=== PATIENT | female | born 1960 | race Caucasian/White ===

== ENCOUNTER 2017-03-23 07:30 | Inpatient (IN) ==
[~2017-03-23 07:30] MED LIST: ACETAMINOPHEN 500 MG TABLET PO ONE; FAMOTIDINE PB 20 MG/50 ML BAG IV ONE; LIDOCAINE 1% (10mg/ml) 2mL INJ PF SDV ID ONE; MELOXICAM 15 MG TABLET PO ONE; METOCLOPRAMIDE 10mg/2ml INJECTION IVP ONE; ONDANSETRON 4 MG/2 ML INJECTION IVP ONE; TRANEXAMIC ACID 1,000 MG in NS 100 ML IV ONE
[2017-03-23] MEDS ORDERED: EPINEPHrine PF 0.25 MG, BUPIVACAINE 0.25% PF 30 ML, MORPHINE SULFATE 15 MG, KETOROLAC I... OPSITE ONE (08:00)
[2017-03-23 09:39] VITALS: BMI 30.4
[2017-03-23] MEDS: NOZIN NASAL SWAB NAS SCH ×3 (10:28→21:42)
[2017-03-23] MEDS: LR 1,000 ML IV SCH ×3 (10:28→14:45)
[2017-03-23] MEDS ORDERED: LR 1,000 ML IV ONE (10:30)
[2017-03-23] MEDS ORDERED: METOCLOPRAMIDE 10mg/2ml INJECTION ONE (10:30)
[2017-03-23] MEDS ORDERED: FAMOTIDINE 20 MG/50 ML PREMIX IV ONE (10:30)
[2017-03-23] MEDS ORDERED: ACETAMINOPHEN 500 MG TABLET ONE (10:30)
[2017-03-23] MEDS ORDERED: ONDANSETRON 4 MG/2 ML INJECTION ONE ×2 (10:30→14:26)
[2017-03-23] MEDS ORDERED: MELOXICAM 15 MG TABLET ONE (10:30)
[2017-03-23] MEDS ORDERED: CEFAZOLIN 1 G INJECTION IVP ONE (10:33)
[2017-03-23] MEDS ORDERED: VANCOMYCIN 1,000 MG INJECTION ONE (11:40)
--- NOTE | 2017-03-23 11:40 | Anesthesia Preoperative Report ---
Anesthesia Preoperative Record - Date and Time Date: 03/23/17 Preoperative Diagnosis: Lt SANJANA M16.12 Proposed Procedure: left SANJANA NPO Since Date: 03/22/17 NPO Since Time: 23:00 Allergies/Adverse Reactions: Allergies Allergy/AdvReac Type Severity Reaction Status Date / Time No Known Allergies Allergy Verified 03/23/17 10:01 - Vital Signs Vital Signs: Temperature 98.6 F 03/23/17 09:38 Pulse Rate 65 03/23/17 10:16 Respiratory Rate 13 03/23/17 09:38 Blood Pressure 127/71 03/23/17 09:38 Pulse Oximetry 96 03/23/17 09:38 Height and Weight: Height 5 ft 4 in Weight 80.4 kg Body Mass Index 30.4 - Medications Inpatient Medications: Current Medications Lactated Ringer's (Lactated Ringers) 1,000 mls @ 50 mls/hr IV .Q20H MICHELLE Last Admin: 03/23/17 10:28 Dose: 50 mls/hr Isopropyl Alcohol (Nozin Nasal Swab) 1 each FABBY Q1M MICHELLE Stop: 03/23/17 15:48 Last Admin: 03/23/17 10:29 Dose: 1 each Sodium Chloride (Iv Flush) 10 - 80 ml IV PRN PRN PRN Reason: [place] Home Medications: Home Medications Medication Instructions Recorded Confirmed Type Celexa (citalopram) 40 mg tablet 40 mg PO DAILY 02/01/17 03/23/17 History Prevacid (Lansoprazole) 15 mg 15 mg PO DAILY cap 02/01/17 03/23/17 History capsule,delayed release Xanax (alprazolam) 0.25 mg tablet 0.25 mg PO Q6H PRN tab 02/01/17 03/23/17 History dapagliflozin 5 mg tablet 5 mg PO DAILY 02/01/17 03/23/17 History linagliptin 2.5 mg-metformin 1,000 1 tab PO DAILY tab 02/02/17 03/23/17 History mg tablet Aleve PM (Naproxen 220 2 tab PO HS PRN tab 03/16/17 03/23/17 History mg-diphenhydramine 25 mg tablet) Naproxen sodium 220 mg tablet 440 mg PO QAM PRN tab 03/16/17 03/23/17 History Acetaminophen [Acetaminophen Extra 500 mg PO PRN 03/23/17 03/23/17 History Strength] Docusate Sodium [Colace] 1 cap PO PRN PRN 03/23/17 03/23/17 History Is Patient on Beta Michele?: No - Medical History Respiratory: Reports: Pneumonia (early ) DENIES: Asthma, Sleep Apnea (SUSPECTED) Cardiovascular: Reports: Other (hyperlipidemia) DENIES: Hypertension Gastrointestional: Reports: Gastroesophageal Reflux Disease (well controlled) Neuro/Musculoskeletal: Reports: HX.MS.OSAR, Back Problems, Depression Renal/Endocrine: Reports: Diabetes Mellitus Type 2 (NIDDM) Other History: Reports: Blood Transfusions (no known reaction) - Surgical History HEENT Surgeries: Reports: Oral Surgery (ext wisdom teeth), Tonsillectomy Cardiac Surgeries/Treatments: Reports: Other (stress test negative) GI Surgery/Treatments: Reports: Appendectomy, Cholecystectomy (open) Reproductive Surgery/Treatment: Reports: Section Anesthesia Reactions: None Hx Family Anesthesia Reaction: No History of Motion Sickness: No - Social History Smoking Status: Never smoker Substance Use Type: does not use Alcohol Intake: never Alcohol Intake Frequency: does not drink - Pertinent Findings Laboratory: CBC and BMP 03/23/17 10:09 BMP 03/23/17 10:09 Sodium 143 Potassium 3.9 Chloride 105 Carbon Dioxide 24 BUN 17.0 Creatinine 0.6 L Glucose 126 H Calcium 9.8 EKG: Sinus Rhythm EKG Ectopy: Bundle Branch Block (right BBB on EKG) - Physical Exam Respiratory Exam: Present: lungs clear, bilateral breath sounds equal Cardiovascular Exam: Present: regular rate and rhythm - Airway Assessment Mallampati Score: III TMD: 3 Fingerbreadths Neck Extension: good Overall Assessment: no airway concerns - ASA ASA Score: 2 - Plan Anesthesia: General [facility]/Trunk Block: Spinal - Discussion Discussion: Discussed risks/options/alternatives of anesthesia and questions answered. Patient consents. Nursing pain assessment noted. Present for Discussion: children (son and daughter) Attestation Statement: Prior to the delivery of any anesthetic medication, I examined the patient, developed the plan, obtained the patient's consent and discussed the risk and benefits of the procedure with the patient/guardian. - Additional Information Seen by Anesthesia: Yes
[2017-03-23] MEDS ORDERED: PROPOFOL 40 ML ONE (11:47)
[2017-03-23] MEDS ORDERED: MIDAZOLAM 2mg/2ml INJECTION ONE (11:47)
[2017-03-23] MEDS ORDERED: VANCOMYCIN 1,000 MG INJECTION IAR ONE (11:49)
[2017-03-23] MEDS ORDERED: PROPOFOL 20 ML ONE ×2 (13:45→14:18)
--- NOTE | 2017-03-23 14:01 | Operative Note ---
- Procedure Preoperative Diagnosis: Left hip primary degenerative joint disease Postoperative Diagnosis: Same as preoperative diagnosis. Surgeon: Ju Amaya MD Investment Consultant: Dung Barron Complications: None. Anesthesia: Spinal. Estimated Blood Loss: See Anesthesia Record. Fluids: Please see Anesthesia Record. Description of Procedure: and her left hip were identified and marked in the preoperative holding area. She was brought back to the operating suite and spinal anesthetic was administered. She was then placed in a lateral decubitus position with her left hip up. The left lower extremity was prepped and draped in my normal sterile fashion. Timeout was performed. The Zinio robotic arm was used to assist with the surgery. A pelvic array was placed into the iliac crest through three small incisions. A direct superior approach was utilized. An approximately 12 cm incision was made in the skin and dissection carried down to the muscle fascia which was then split in line with skin incision. A The short external rotators were identified and tagged and detached. A capsulotomy was performed and the hip dislocated. A femoral neck osteotomy was performed at the pre-templated level measuring down from the femoral head. The head was removed and acetabulum exposed. Labrum was removed. The acetabulum was then registered with the robot. The robotic arm was then used to ream with a 50 reamer. The robot then was again used to place a 50 Trident cup in 40 of tilt and 22 of anteversion. A liner was then placed. The proximal femur was exposed and prepared with a cookie cutter followed by reaming and broaching to a size 3. We trialed with a 0 head. After thorough irrigation a final Accolade 2 size 3 stem with 127 neck was placed. Leg length and offset were checked with the robot and were good. A final standard ceramic 36 mm head was placed and the hip reduced. Betadine solution was used to irrigate throughout the case. It was followed by normal saline irrigation. Joint cocktail was injected throughout soft tissue. The capsulotomy was repaired with Ethibond. Short external rotators were also repaired with Ethibond. 1 g of vancomycin powder was placed into the wound. The muscle fascia was then repaired with #1 Vicryl. I then left my catering administrative assistant to close the subcutaneous tissue with 2-0 Vicryl followed by running 4-0 Monocryl skin followed by Dermabond and a sterile dressing. The patient with any placed back into supine position and taken to recovery room in the care of anesthesia.
[2017-03-23] MEDS ORDERED: MORPHINE SULFATE 10 MG/ML VIAL ONE (14:08)
[2017-03-23] MEDS ORDERED: DiphenhydrAMINE 50 MG/ML INJECTION IVP ONE (14:43)
[2017-03-23] MEDS ORDERED: DEXAMETHASONE 20 MG/5 ML INJECTION IVP ONE (14:44)
--- NOTE | 2017-03-23 14:53 | XRay Report ---
Indication: postoperative image PROCEDURE: XR pelvis w/ 1 view LT hip: Encounter: Initial Comparison: February 01, 2017 Findings: Postoperative changes of left total hip replacement are seen. There is expected postoperative subcutaneous gas. No evidence of hardware failure or acute fracture. No retained radiopaque surgical instruments or sponges seen. Impression: New left total hip prosthesis without evidence of immediate complication. .
[2017-03-23] MEDS ORDERED: ALPRAZolam 0.25 MG TABLET PO PRN (14:59)
[2017-03-23] MEDS ORDERED: INSULIN ASPART 100unit/ml INJECTION SQ PRN (14:59)
[2017-03-23] MEDS ORDERED: NOZIN NASAL SWAB NAS ONE (14:59)
[2017-03-23] MEDS ORDERED: LORazepam 1 MG TABLET PO PRN (14:59)
[2017-03-23] MEDS ORDERED: [UNRECOGNIZED DRUG - OTHER] PO PRN (14:59)
[2017-03-23] MEDS ORDERED: DIPHENHYDRAMINE PO PRN (14:59)
[2017-03-23] MEDS ORDERED: ONDANSETRON 4 MG/2 ML INJECTION IVP PRN (14:59)
[2017-03-23] MEDS ORDERED: DiphenhydrAMINE 50 MG/ML INJECTION IVP PRN (14:59)
[2017-03-23] MEDS ORDERED: NAPROXEN SOD PO PRN (14:59)
[2017-03-23] MEDS ORDERED: DiphenhydrAMINE 25 MG CAPSULE PO PRN ×2 (14:59→15:57)
[2017-03-23] MEDS ORDERED: NAPROXEN 220 MG TABLET PO PRN ×2 (14:59→15:55)
[2017-03-23] MEDS: NS 1,000 ML IV SCH (15:14)
[2017-03-23] MEDS: DEXAMETHASONE 20 MG/5 ML INJECTION IVP SCH ×2 (15:15→22:45)
[2017-03-23] MEDS ORDERED: FALL RISK - PHARMACY CONSULT XX ONE (15:43)
[2017-03-23] MEDS ORDERED: SALINE FLUSH 10ml SYRINGE IV PRN (15:43)
--- NOTE | 2017-03-23 16:06 | Anesthesia Postoperative Note ---
- Date and Time Date: 03/23/17 Time: 16:05 - Status Patient Participated in Evaluation: Patient Participated in Person Vital Signs: Temperature 97.5 F 03/23/17 15:15 Pulse Rate 61 03/23/17 15:30 Respiratory Rate 16 03/23/17 15:30 Blood Pressure 110/61 03/23/17 15:30 Pulse Oximetry 94 03/23/17 15:30 Respiratory Function: Airway Patent Cardiovascular Function: Regular Pulse Mental Status: Alert and Oriented Pain Intensity: 3 Hydration: IV Infusing Complications During Recover: None Apparent - Follow-Up Instructions Instructions: Per Surgeon
[2017-03-23] MEDS: ACETAMINOPHEN 325 MG TABLET PO SCH ×2 (16:30→21:40)
[2017-03-23] MEDS: Oxycodone *IR* 5 MG TABLET PO PRN ×2 (16:31→19:54)
[2017-03-23] MEDS ORDERED: SENNOSIDES 8.6 MG TABLET PO SCH (21:00)
[2017-03-23] MEDS: ASPIRIN *EC* 81 MG TABLET PO SCH (21:39)
[2017-03-23] MEDS: DOCUSATE SODIUM 100 MG CAPSULE PO SCH (21:40)
[2017-03-23] MEDS: CEFAZOLIN 2 G in NS 50 ML IV SCH (21:42)
[2017-03-24] MEDS: Oxycodone *IR* 5 MG TABLET PO PRN ×3 (02:29→11:51)
[2017-03-24] MEDS: NS 1,000 ML IV SCH (03:35)
[2017-03-24] MEDS: CEFAZOLIN 2 G in NS 50 ML IV SCH (03:35)
[2017-03-24] MEDS: NOZIN NASAL SWAB NAS SCH ×2 (06:13→14:56)
[2017-03-24] MEDS ORDERED: OMEPRAZOLE 20 MG CAPSULE PO SCH (06:30)
--- NOTE | 2017-03-24 08:12 | Orthopedic Progress Note ---
Date: Date: 03/24/17 Time: 808 Subjective/Severity of Illness: Shanda is doing very well. Pain is well controlled at rest. She has been up with good tolerance and can already tell the pre op pain is gone. Denies CP or SOA. She is on O2 and is scheduled for a sleep study as an out patient. Afebrile, VSS, Labs look good. BGMs 112-151 range and was 117 this AM. Dressing dry. Plans discharge with home health. Orthopedic Objective PO Vital signs: Temperature 96.8 F 03/24/17 04:00 Pulse Rate 63 03/24/17 04:00 Respiratory Rate 16 03/24/17 04:00 Blood Pressure 110/57 03/24/17 04:00 Pulse Oximetry 98 03/24/17 04:00 Height and Weight: Height 5 ft 4 in Weight 177 lb 4.026 oz Body Mass Index 30.4 - Constitutional General Appearance: Present: alert, cooperative, no acute distress - Respiratory Exam Present: non-labored - Cardiovascular Exam Present: pedal pulses intact - Extremities Exam Extremities: Present: pulses intact. Absent: calf tenderness - Surgical Site Incision: Mepilex dressing intact, dressing intact, no drainage - Integumentary Exam Present: pink, warm, dry - Neurological Exam Present: no deficits - Psychiatric Exam Present: alert, normal affect - Labs Result Diagrams: 03/24/17 03:59 03/24/17 03:59 Abnormal lab results 03/23/17 03/24/17 03/24/17 Range/Units 10:09 03:59 03:59 Hgb 11.3 L (12-16) GM/DL Hct 35.7 L (36-46) % Creatinine 0.6 L 0.5 L (0.7-1.2) MG/DL BUN/Creatinine Ratio 28 H (6-26) RATIO Glucose 126 H 117 H (65-110) MG/DL Specimen Hemolysis 27 H (0-25) H & H 03/24/17 Range/Units 03:59 Hgb 11.3 L (12-16) GM/DL Hct 35.7 L (36-46) % Orthopedic Assessment and Plan (1) Osteoarthritis of left hip Status: Chronic Qualifiers: Osteoarthritis type: primary Qualified Code(s): M16.12 - Unilateral primary osteoarthritis, left hip Assessment and Plan: Aspirin protocol for VTE prophylaxis. SCD's added for added protection. PT/OT services to improve independent function. Discharge Planning per Case Management. Resume diabetic meds and monitor. Plan discharge home later today. (2) Diabetes type 2, controlled Status: Chronic - Anticoagulation Therapy Anticoagulation: ASA 81 mg PO BID x6 weeks Hospital Course Summary Disclaimer: The visit summary below is not to be considered part of the above Progress Note.
--- NOTE | 2017-03-24 08:20 | Discharge Summary ---
Orthopedic Discharge Info Date of admission: 03/23/17 09:19 Anticipated date of discharge: 03/24/17 Primary care physician: Myla Ridley APRN Attending Physician: Jayson Amaya MD Consults: 03/23/17 09:58 Consult to Anesthesiology [CONS] Routine Reason For Exam: Preoperative Assessment 03/23/17 14:59 Case Management Consult [CONS] Routine Reason For Exam: Discharge Planning DME-Walker [CONS] Routine Height: 5 ft 4 in Weight: 177 lb 4.026 oz Total Joint Outpatient Therapy [CONS] Routine Comment: Remove dressing in 2 weeks - Discharge Diagnosis (1) Osteoarthritis of left hip Qualifiers: Osteoarthritis type: primary Qualified Code(s): M16.12 - Unilateral primary osteoarthritis, left hip Status: Chronic (2) Diabetes type 2, controlled Status: Chronic - Procedures Procedures: Left SANJANA 03/23/17. - Laboratory Result Diagrams: 03/24/17 03:59 03/24/17 03:59 Laboratory: Abnormal lab results 03/23/17 03/24/17 03/24/17 Range/Units 10:09 03:59 03:59 Hgb 11.3 L (12-16) GM/DL Hct 35.7 L (36-46) % Creatinine 0.6 L 0.5 L (0.7-1.2) MG/DL BUN/Creatinine Ratio 28 H (6-26) RATIO Glucose 126 H 117 H (65-110) MG/DL Specimen Hemolysis 27 H (0-25) H & H 03/24/17 Range/Units 03:59 Hgb 11.3 L (12-16) GM/DL Hct 35.7 L (36-46) % Orthopedic Discharge HPI - HPI Comments This patient was admitted for elective surgical tx of end stage degenerative joint disease that failed to respond to conservative treatment. Further details of this is found in the admission H&P. Orthopedic Hospital Course Hospital course: 03/24/17 08:16 After appropriate preoperative clearance and signing of operative consent, the patient was given IV antibiotics, according to orthopedic protocol. The patient was taken to the operating room and underwent elective left total hip arthroplasty. Following surgery, antibiotics were discontinued less than 24 hours according to joint protocol. Aspirin was initiated and SCDs added for DVT prevention. The dressing was clean, dry, and intact. Pain control was obtained via multimodal approach. Bowel motivation addressed with scheduled and PRN medications. Diabetic meds were restarted and blood sugars were under good control. Early mobilization was initiated through PT services. Discharge arrangements made by a collaborative effort between the patient and Case Management. Follow-up is scheduled in 2-3 weeks. Discharge instructions given by orthopedic providers and nursing staff at discharge. Discharge condition was good. Care extended to > 2 midnight stays?: No Discharge Plan - Med Rec/Dispo Referrals/Follow Up: Jayson Amaya MD [Physician] - 04/14/17 9:30 am [facility] Instructions: [facility] Postop Instructions Prescriptions: New Acetaminophen [Tylenol] 650 mg PO QID tab Aspirin *EC* [Ecotrin] 81 mg PO BID tab Milk of Magnesia [Mom] 30 ml PO DAILY udc PEG 3350 17gm PACKET [Miralax] 17 gm PO DAILY packet Oxycodone *IR* [Roxicodone *Ir*] 5 - 15 mg PO Q3H PRN #60 tab PRN Reason: Breakthrough Pain Continue Docusate Sodium [Colace] 1 cap PO PRN PRN PRN Reason: Stool Softening Celexa (citalopram) 40 mg tablet 40 mg PO DAILY Prevacid (Lansoprazole) 15 mg capsule,delayed release 15 mg PO DAILY cap ergocalciferol (vitamin D2) 50,000 unit capsule 50,000 unit PO DAILY #2 cap dapagliflozin 5 mg tablet 5 mg PO DAILY Xanax (alprazolam) 0.25 mg tablet 0.25 mg PO Q6H PRN tab PRN Reason: Anxiety linagliptin 2.5 mg-metformin 1,000 mg tablet 1 tab PO DAILY tab Aleve PM (Naproxen 220 mg-diphenhydramine 25 mg tablet) 2 tab PO HS PRN tab PRN Reason: Pain Naproxen sodium 220 mg tablet 440 mg PO QAM PRN tab PRN Reason: Pain Discontinued Acetaminophen [Acetaminophen Extra Strength] 500 mg PO PRN [place] 5 mg-acetaminophen 325 mg tablet 1 tab PO Q4-6HPRN PRN #30 tab PRN Reason: pain - Disposition 01 Discharged Home, Self-Care - Dismissal Complete Discharge Instructions are:: Incomplete
[2017-03-24] MEDS: ASPIRIN *EC* 81 MG TABLET PO SCH (08:46)
[2017-03-24] MEDS: DOCUSATE SODIUM 100 MG CAPSULE PO SCH (08:46)
[2017-03-24] MEDS: ACETAMINOPHEN 325 MG TABLET PO SCH ×2 (08:46→12:55)
[2017-03-24] MEDS ORDERED: POLYETHYL GLYCOL 3350 17gm PACKET PO SCH (09:00)
[2017-03-24] MEDS ORDERED: CITALOPRAM 40 MG TABLET PO SCH (09:00)
[2017-03-24] MEDS ORDERED: METFORMIN 1,000 MG TABLET PO SCH (09:00)
[2017-03-24] MEDS ORDERED: DAPAGLIFLOZIN 5 MG PO SCH (09:00)
[2017-03-24] MEDS ORDERED: LANSOPRAZOLE 15 MG PO SCH (09:00)
[2017-03-24 11:59] VITALS: TEMP 96.6
[2017-03-24] MEDS ORDERED: SENNOSIDES 8.6 MG TABLET PO PRN (14:25)
[2017-03-24 18:05] VITALS: BP 120/59; PULSE 72; RESP 18; O2SAT 96
[2017-03-25] MEDS ORDERED: JENTADUETO PO SCH (08:00)
[2017-03-25] MEDS ORDERED: DAPAGLIFLOZIN 5 MG PO SCH (09:00)
[2017-03-25] MEDS ORDERED: BISACODYL 10 MG SUPPOSITORY RECTALLY SCH (20:00)
== END 2017-03-24 17:25 | disposition home health service (06) | DRG 470 ==
LOC: NMC.PERIOP 09:19 → SRG 15:10
PROVIDERS: ADMIT Orthopaedic Surgery; ATTEND Orthopaedic Surgery